=== PATIENT | male | born 1940 | race Caucasian/White ===

== ENCOUNTER → 2020-07-13 | Outpatient (CLI) | payer MEDICARE ==
[~2020-07-13] MED LIST: PROTONIX40 MG PO
== END ==
LOC: RT 08:45
DX: I25.10 Atherosclerotic heart disease of native coronary artery without angina pectoris (principal); R94.31 Abnormal electrocardiogram [ECG] [EKG]
CPT/HCPCS: 93005

== ENCOUNTER → 2020-09-30 | Outpatient (CLI) | payer MEDICARE ==
[~2020-09-30] MED LIST changes: +ASPIRIN EC81 MG PO; +DEXILANT30 MG PO; +ELIQUIS 5 MG TAB5 MG PO; +FLOMAX 0.4 MG0.4 MG PO; +LISINOPRIL5 MG PO; +LOPRESSOR 50 MG50 MG PO; +METOPROLOL TART25 MG PO; +PROTONIX 40 MG40 M1 PO; +ZOCOR40 MG PO
== END ==
LOC: MRI 09-28 13:00
DX: M54.2 Cervicalgia (principal); M54.5 Low back pain; M41.9 Scoliosis, unspecified; M48.061 Spinal stenosis, lumbar region without neurogenic claudication; M51.26 Other intervertebral disc displacement, lumbar region; M48.02 Spinal stenosis, cervical region
CPT/HCPCS: 72141; 72148

== ENCOUNTER 2020-10-12 16:19 | Inpatient (IN) | payer MEDICARE ==
[~2020-10-12] VITALS: Ht 167.6 cm; Wt 83.9 kg
[~2020-10-12 16:19] MED LIST changes: -ASPIRIN EC81 MG PO; -DEXILANT30 MG PO; -ELIQUIS 5 MG TAB5 MG PO; -FLOMAX 0.4 MG0.4 MG PO; -LISINOPRIL5 MG PO; -LOPRESSOR 50 MG50 MG PO; -METOPROLOL TART25 MG PO; -PROTONIX 40 MG40 M1 PO; -ZOCOR40 MG PO
[2020-10-12 17:53] LABS: HEMOGLOBIN 16.6 gm/dl (14.0-17.5); RED BLOOD COUNT 6.2 M/UL (4.20-5.50); WHITE BLOOD COUNT 11.6 K/UL (4.5-11.0)
[2020-10-12 18:02] LABS: BUN/CREATININE RATIO 22 (0-10)
[2020-10-13 00:11] LABS: BUN/CREATININE RATIO 15 (0-10)
[2020-10-13 06:05] LABS: HEMOGLOBIN 15.8 gm/dl (14.0-17.5); RED BLOOD COUNT 5.58 M/UL (4.20-5.50); WHITE BLOOD COUNT 8.5 K/UL (4.5-11.0)
[2020-10-13 06:41] LABS: BUN/CREATININE RATIO 14 (0-10)
[2020-10-13] MEDS ORDERED: ASPIRIN EC81 MG PO (12:38)
[2020-10-13] MEDS ORDERED: ZOCOR40 MG PO (12:39)
[2020-10-13] MEDS ORDERED: FLOMAX 0.4 MG0.4 MG PO (12:39)
[2020-10-13] MEDS ORDERED: METOPROLOL TART25 MG PO (12:40)
[2020-10-13] MEDS ORDERED: LISINOPRIL5 MG PO (12:40)
[2020-10-13] MEDS ORDERED: DEXILANT30 MG PO (12:42)
[2020-10-13] MEDS ORDERED: PROTONIX 40 MG40 M1 PO (15:10)
[2020-10-14 04:02] LABS: HEMOGLOBIN 15.8 gm/dl (14.0-17.5); RED BLOOD COUNT 5.57 M/UL (4.20-5.50); WHITE BLOOD COUNT 8.3 K/UL (4.5-11.0)
[2020-10-14 04:22] LABS: BUN/CREATININE RATIO 14 (0-10)
[2020-10-14] MEDS ORDERED: LOPRESSOR 50 MG50 MG PO (16:36)
[2020-10-14] MEDS ORDERED: ELIQUIS 5 MG TAB5 MG PO (16:36)
== END 2020-10-14 20:00 | disposition home or self-care (01) | DRG 308 ==
LOC: ER1 16:19 → CDU 18:57 → PROG CARE 18:57
PROVIDERS: Physician Assistant; ADMIT Internal Medicine
PROC: B24BZZ4 Ultrasonography of Heart with Aorta, Transesophageal (ICD-10-PCS; principal; 2020-10-14)
DX: I48.0 Paroxysmal atrial fibrillation (principal); I26.99 Other pulmonary embolism without acute cor pulmonale; E87.2 Acidosis; I25.10 Atherosclerotic heart disease of native coronary artery without angina pectoris; Z20.822 Contact with and (suspected) exposure to COVID-19; I27.20 Pulmonary hypertension, unspecified; N40.0 Benign prostatic hyperplasia without lower urinary tract symptoms; E83.39 Other disorders of phosphorus metabolism; K44.9 Diaphragmatic hernia without obstruction or gangrene; E78.5 Hyperlipidemia, unspecified; E83.42 Hypomagnesemia; E87.6 Hypokalemia; I71.4 Abdominal aortic aneurysm, without rupture; E83.51 Hypocalcemia; I10 Essential (primary) hypertension; E88.09 Other disorders of plasma-protein metabolism, not elsewhere classified; Z95.5 Presence of coronary angioplasty implant and graft; Z79.01 Long term (current) use of anticoagulants; Z95.1 Presence of aortocoronary bypass graft; I25.2 Old myocardial infarction; Z86.73 Personal history of transient ischemic attack (TIA), and cerebral infarction without residual deficits; Z90.49 Acquired absence of other specified parts of digestive tract; Z87.11 Personal history of peptic ulcer disease; Z87.01 Personal history of pneumonia (recurrent); Z90.3 Acquired absence of stomach [part of]; Z90.79 Acquired absence of other genital organ(s); Z91.81 History of falling; Z86.711 Personal history of pulmonary embolism; Z82.49 Family history of ischemic heart disease and other diseases of the circulatory system; Z91.041 Radiographic dye allergy status; I08.2 Rheumatic disorders of both aortic and tricuspid valves
CPT/HCPCS: ECHO; 36415; 71045; 80053; 80061; 82550; 82553; 82803; 83735; 83874; 83880; 84100; 84439; 84443; 84484; 85025; 85379; 85610; 85730; 93005; 93306; 96374; 99285; J1160; J1650; J3475; J7030; J7070; Q9967; U0002

== ENCOUNTER 2020-10-16 13:10 | Emergency (ER) | payer MEDICARE ==
[~2020-10-16 13:10] MED LIST changes: +ASPIRIN EC81 MG PO; +DEXILANT30 MG PO; +ELIQUIS 5 MG TAB5 MG PO; +FLOMAX 0.4 MG0.4 MG PO; +LISINOPRIL5 MG PO; +LOPRESSOR 50 MG50 MG PO; +METOPROLOL TART25 MG PO; +PROTONIX 40 MG40 M1 PO; +ZOCOR40 MG PO
[2020-10-16 14:04] LABS: HEMOGLOBIN 16.8 gm/dl (14.0-17.5); RED BLOOD COUNT 5.9 M/UL (4.20-5.50); WHITE BLOOD COUNT 9.8 K/UL (4.5-11.0)
[2020-10-16 14:27] LABS: BUN/CREATININE RATIO 22 (0-10)
[2020-10-16] MEDS ORDERED: METOPROLOL TART25 MG PO (19:08)
== END 2020-10-16 19:15 | disposition home or self-care (01) ==
LOC: ER1 13:10
PROVIDERS: Physician Assistant
DX: I48.91 Unspecified atrial fibrillation (principal); I10 Essential (primary) hypertension; H91.90 Unspecified hearing loss, unspecified ear; E78.5 Hyperlipidemia, unspecified; Z95.1 Presence of aortocoronary bypass graft; Z79.01 Long term (current) use of anticoagulants
CPT/HCPCS: 71045; 80053; 82550; 82553; 83874; 84484; 85025; 93005; 99285